=== PATIENT | female | born 1970 | race Caucasian/White ===

== ENCOUNTER 2022-08-24 01:37 | Emergency (ER) | payer MEDICAID ==
[~2022-08-24] VITALS: Ht 167.6 cm; Wt 74.8 kg
[~2022-08-24 01:37] MED LIST: ESCI20TA PO; TRAZ-250 PO
[2022-08-24 01:58] VITALS: BP_SYST 150
--- NOTE | 2022-08-24 02:08 | NUR ---
RIGHT SIDED ABD PAIN THAT IS SHARP IN NATURE AND INTERMITTENT 10/10 X1 WEEK
[2022-08-24 02:39] LABS: BASOPHILS # (AUTO) 0.1 K/uL (0.0-0.2); BASOPHILS % (AUTO) 0.7 % (0.0-2.0); EOSINOPHILS # (AUTO) 0.1 K/uL (0.0-0.4); EOSINOPHILS % (AUTO) 1.5 % (0.0-4.0); HEMOGLOBIN 12.7 g/dL (12.0-16.0); LYMPHOCYTES % (AUTO) 35.4 % (20.5-51.5); MEAN CORPUSCULAR HEMOGLOBIN 36 pg (27-31); MEAN CORPUSCULAR HGB CONC 34 % (32-36); MEAN CORPUSCULAR VOLUME 104 fL (79.0-98.0); MONOCYTES # (AUTO) 0.6 K/uL (0.0-1.0); MONOCYTES % (AUTO) 7.3 % (1.7-9.3); NEUTROPHILS # (AUTO) 4.6 K/uL (1.8-7.7); NEUTROPHILS % (AUTO) 55.1 % (40.0-70.0); PLATELET COUNT (AUTO) 135 K/uL (130-430); RED BLOOD CELL COUNT(AUTO) 3.58 MIL/uL (4.2-6.2); RED CELL DISTRIBUTION WIDTH 16.1 % (9.0-15.0); WHITE BLOOD COUNT (AUTO) 8.4 K/uL (4.8-10.8)
[2022-08-24 02:58] LABS: ALBUMIN 2.8 g/dL (3.4-4.8); CALCIUM 8.2 mg/dL (8.4-11.0); CREATININE 0.56 mg/dL (0.55-1.30)
[2022-08-24] MEDS ORDERED: HYDROcodone/ACETAMIN 5-325 MG TAB (NORCO/ VICODIN) PO ONE (03:15)
--- NOTE | 2022-08-24 03:18 | NUR ---
Patient arrived to ED 5 for c/o abdominal pain and vomiting on and off for past three weeks. Patient denies having previous abdominal pain. PMH Uterine ablation. Patient denies taking any medications prior to arrival. Patient alert and oriented x3. Respiration even and unlabored. No shortness of breath. Will continue to monitor.
[2022-08-24] MEDS ORDERED: HYDROcodone/ACETAMIN 5-325 MG TAB (NORCO/ VICODIN) ONE (03:44)
[2022-08-24 03:53] LABS: BILIRUBIN,URINE NEGATIVE (NEGATIVE); BLOOD, URINE NEGATIVE (NEGATIVE); CLARITY/URINE SL CLOUDY (CLEAR); COLOR,URINE YELLOW (YELLOW); GLUCOSE,URINE NEGATIVE (NEGATIVE); KETONES,URINE NEGATIVE (NEGATIVE); LEUKOCYTE ESTERASE ,URINE NEGATIVE (NEGATIVE); NITRITE, URINE NEGATIVE (NEGATIVE); PROTEIN URINE NEGATIVE (NEGATIVE)
[2022-08-24 04:20] VITALS: BP_SYST 132
[2022-08-24] MEDS ORDERED: IBUP-1969 PO (04:57)
[2022-08-24] MEDS ORDERED: DICY10CA13 PO (04:57)
[2022-08-24] MEDS ORDERED: ONDA-8 TL (04:57)
--- NOTE | 2022-08-24 05:08 | NUR ---
Informed of lab values. Educated patient on nutrient intake and supplements upon discharge.
--- NOTE | 2022-08-24 05:10 | NUR ---
Patient given written and verbal discharge instructions and verbalizes understanding. ER MD discussed with patient the results and treatment provided. Patient in stable condition. ID arm band removed. IV catheter removed intact and dressing applied, no active bleeding. Rx of meds dicyclomine given. Patient educated on pain management and to follow up with PMD. Pain Scale . Opportunity for questions provided and answered. Medication side effect fact sheet provided.
== END 2022-08-24 05:09 | disposition home or self-care (01) ==
LOC: SED 01:37
DX: K76.0 Fatty (change of) liver, not elsewhere classified (principal); R10.11 Right upper quadrant pain; R11.10 Vomiting, unspecified; Z79.899 Other long term (current) drug therapy
CPT/HCPCS: 36415; 74018; 76705; 80053; 81003; 83690; 85025; 99284

== ENCOUNTER 2023-01-27 14:59 | Inpatient (IN) | payer MEDICAID ==
[~2023-01-27] VITALS: Ht 167.6 cm; Wt 86.6 kg
[~2023-01-27 14:59] MED LIST changes: +DICY-14 PO; +IBUP-1969 PO; +ONDA-8 TL
[2023-01-27 15:45] VITALS: BP_SYST 143; PULSE 86; RESP 18; TEMP 97.6; O2SAT 98
[2023-01-27] MEDS ORDERED: NACL 0.9% 1,000 ML IV ONE (15:45)
[2023-01-27] MEDS ORDERED: MORPHINE 4 MG INJ. 4 MG/ML VIAL IVP ONE ×2 (15:45→18:00)
[2023-01-27] MEDS ORDERED: ONDANSETRON HCL 4 MG/2 ML VIAL IVP ONE ×2 (15:45→18:00)
[2023-01-27 16:31] LABS: BILIRUBIN,URINE 2+ (NEGATIVE); BLOOD, URINE 2+ (NEGATIVE); GLUCOSE,URINE NEGATIVE (NEGATIVE); KETONES,URINE TRACE (NEGATIVE); LEUKOCYTE ESTERASE ,URINE TRACE (NEGATIVE); NITRITE, URINE POSITIVE (NEGATIVE); PROTEIN URINE 1+ (NEGATIVE); UROBILINOGEN,URINE 0.2 (0.2-1.0)
[2023-01-27 16:48] LABS: BASOPHILS % (AUTO) 0.5 % (0.0-2.0); EOSINOPHILS # (AUTO) 0.1 K/uL (0.0-0.4); EOSINOPHILS % (AUTO) 0.9 % (0.0-4.0); HEMATOCRIT 35.2 % (36-48); HEMOGLOBIN 11.9 g/dL (12.0-16.0); LYMPHOCYTES # (AUTO) 1.5 K/uL (1.0-5.5); LYMPHOCYTES % (AUTO) 20.6 % (20.5-51.5); MEAN CORPUSCULAR HEMOGLOBIN 34 pg (27-31); MEAN CORPUSCULAR HGB CONC 34 % (32-36); MEAN CORPUSCULAR VOLUME 102 fL (79.0-98.0); MONOCYTES # (AUTO) 0.5 K/uL (0.0-1.0); MONOCYTES % (AUTO) 7.2 % (1.7-9.3); NEUTROPHILS # (AUTO) 5.2 K/uL (1.8-7.7); NEUTROPHILS % (AUTO) 70.8 % (40.0-70.0); PLATELET COUNT (AUTO) 197 K/uL (130-430); RED BLOOD CELL COUNT(AUTO) 3.46 MIL/uL (4.2-6.2); RED CELL DISTRIBUTION WIDTH 15.7 % (9.0-15.0); WHITE BLOOD COUNT (AUTO) 7.4 K/uL (4.8-10.8)
[2023-01-27] MEDS ORDERED: CIPROFLOXACIN LACT 400 MG/D5W 200 ML IV ONE (17:00)
[2023-01-27] MEDS ORDERED: metroNIDAZOLE 500 mg/NS 100 ML IV ONE (17:00)
[2023-01-27 17:01] LABS: ALBUMIN 2.1 g/dL (3.4-4.8); BILIRUBIN,DIRECT 0.6 mg/dL (0.0-0.3); CALCIUM 8.7 mg/dL (8.4-11.0); CREATININE 0.63 mg/dL (0.55-1.30); TOTAL BILIRUBIN 1.1 mg/dL (0.0-1.0)
[2023-01-27 17:21] LABS: POTASSIUM 2.6 mmol/L (3.5-5.1)
[2023-01-27 17:39] LABS: COLOR,URINE AMBER (YELLOW)
[2023-01-27 17:40] LABS: BACTERIA,URINE MODERATE /HPF (None Seen); CLARITY/URINE HAZY (CLEAR)
[2023-01-27 17:41] LABS: MUCUS,URINE 3+ /LPF (None Seen)
[2023-01-27] MEDS ORDERED: POTASSIUM CHLORIDE 20 MEQ/PKT PACKET PO ONE (18:00)
[2023-01-27] MEDS ORDERED: KCL 20 mEq in 100 mL (PREMIX) 100 ML IV ONE (18:00)
[2023-01-27] MEDS ORDERED: POTASSIUM CHLORIDE 20 MEQ/PKT PACKET ONE (18:41)
[2023-01-27] MEDS ORDERED: NALOXONE HCL 0.4 MG/ML AMP (NARCAN) IVP PRN (22:30)
[2023-01-27] MEDS ORDERED: LORazepam 2 MG/ML VIAL IVP PRN (22:30)
[2023-01-27] MEDS ORDERED: DICYCLOMINE HCL 10 MG CAPSULE PO PRN (22:30)
[2023-01-27] MEDS ORDERED: ONDANSETRON HCL 4 MG/2 ML VIAL IVP PRN (22:30)
[2023-01-27] MEDS: MORPHINE 4 MG INJ. 4 MG/ML VIAL IVP PRN (23:37)
[2023-01-27] MEDS ORDERED: cefTRIAXone 1 GM VIAL ONE (23:38)
[2023-01-27] MEDS: D5/0.45 NS 1,000 ML IV SCH (23:45)
[2023-01-27 23:54] VITALS: BP_SYST 114; PULSE 122; RESP 20; TEMP 99; O2SAT 94
[2023-01-28] VITALS (8 sets, daily range): BP systolic 117–134; PULSE 95–116; RESP 17–22; TEMP 97.1–98; O2SAT 94–96
[2023-01-28] MEDS: cefTRIAXone 1 GM in D5W 50 ML IV SCH ×2 (00:41→22:34)
[2023-01-28] MEDS: DIPHENHYDRAMINE INJ 50 MG/ML VIAL IVP PRN ×2 (00:59→10:29)
[2023-01-28] MEDS ORDERED: FLU VACC QS2023-24(6MOS UP)/PF 0.5 ML/SYR SYRINGE I.M. PRN (01:15)
[2023-01-28] MEDS: MORPHINE 4 MG INJ. 4 MG/ML VIAL IVP PRN ×4 (04:53→20:44)
[2023-01-28 06:04] LABS: BASOPHILS # (AUTO) 0.1 K/uL (0.0-0.2); BASOPHILS % (AUTO) 0.8 % (0.0-2.0); EOSINOPHILS # (AUTO) 0.1 K/uL (0.0-0.4); EOSINOPHILS % (AUTO) 2.2 % (0.0-4.0); HEMATOCRIT 34.5 % (36-48); HEMOGLOBIN 11.4 g/dL (12.0-16.0); LYMPHOCYTES # (AUTO) 1.7 K/uL (1.0-5.5); LYMPHOCYTES % (AUTO) 26.4 % (20.5-51.5); MEAN CORPUSCULAR HEMOGLOBIN 34 pg (27-31); MEAN CORPUSCULAR HGB CONC 33 % (32-36); MEAN CORPUSCULAR VOLUME 102 fL (79.0-98.0); MONOCYTES # (AUTO) 0.4 K/uL (0.0-1.0); MONOCYTES % (AUTO) 5.8 % (1.7-9.3); NEUTROPHILS # (AUTO) 4.3 K/uL (1.8-7.7); NEUTROPHILS % (AUTO) 64.8 % (40.0-70.0); PLATELET COUNT (AUTO) 176 K/uL (130-430); RED CELL DISTRIBUTION WIDTH 16.1 % (9.0-15.0); WHITE BLOOD COUNT (AUTO) 6.6 K/uL (4.8-10.8)
[2023-01-28] MEDS: D5/0.45 NS 1,000 ML IV SCH ×3 (06:17→23:07)
[2023-01-28 06:45] LABS: ALBUMIN 2.1 g/dL (3.4-4.8); CALCIUM 8.5 mg/dL (8.4-11.0); CREATININE 0.58 mg/dL (0.55-1.30); PHOSPHORUS 2.3 mg/dL (2.7-4.5); POTASSIUM 3.1 mmol/L (3.5-5.1)
[2023-01-28] MEDS ORDERED: ESCITALOPRAM OXALATE 10 MG TABLET PO SCH (09:00)
[2023-01-28] MEDS: CITALOPRAM HYDROBROMIDE 20 MG TABLET PO SCH (09:00)
[2023-01-28] MEDS ORDERED: POTASSIUM CHLORIDE 20 MEQ/PKT PACKET PO ONE (12:00)
[2023-01-28] MEDS: metroNIDAZOLE 500 mg/NS 100 ML IV SCH ×2 (16:26→21:17)
[2023-01-28] MEDS: traZODone HCL 50 MG TABLET (DESYREL) PO SCH ×2 (20:54→20:58)
[2023-01-28] MEDS: LACTOBACILLUS RHAMNOSUS GG 1 CAP CAPSULE PO SCH (20:54)
[2023-01-28] MEDS: MORPHINE 2 MG/ML INJ. SYRINGE IVP PRN (22:40)
[2023-01-29] VITALS (8 sets, daily range): BP systolic 93–124; PULSE 102–120; RESP 16–18; TEMP 97.4–99.1; O2SAT 93–99
[2023-01-29] MEDS: MORPHINE 4 MG INJ. 4 MG/ML VIAL IVP PRN ×3 (04:19→22:42)
[2023-01-29] MEDS: metroNIDAZOLE 500 mg/NS 100 ML IV SCH ×3 (05:20→22:42)
[2023-01-29 05:53] LABS: BASOPHILS % (AUTO) 0.7 % (0.0-2.0); EOSINOPHILS # (AUTO) 0.1 K/uL (0.0-0.4); EOSINOPHILS % (AUTO) 1.8 % (0.0-4.0); HEMATOCRIT 32.3 % (36-48); HEMOGLOBIN 10.6 g/dL (12.0-16.0); LYMPHOCYTES # (AUTO) 1.2 K/uL (1.0-5.5); LYMPHOCYTES % (AUTO) 19.2 % (20.5-51.5); MEAN CORPUSCULAR HEMOGLOBIN 33 pg (27-31); MEAN CORPUSCULAR HGB CONC 33 % (32-36); MEAN CORPUSCULAR VOLUME 102 fL (79.0-98.0); MONOCYTES # (AUTO) 0.3 K/uL (0.0-1.0); MONOCYTES % (AUTO) 4.6 % (1.7-9.3); NEUTROPHILS # (AUTO) 4.4 K/uL (1.8-7.7); NEUTROPHILS % (AUTO) 73.7 % (40.0-70.0); PLATELET COUNT (AUTO) 161 K/uL (130-430); RED BLOOD CELL COUNT(AUTO) 3.17 MIL/uL (4.2-6.2); RED CELL DISTRIBUTION WIDTH 15.8 % (9.0-15.0)
[2023-01-29 05:57] LABS: ERYTHROCYTE SEDIMENTATION RATE 69 MM/HR (0-20)
[2023-01-29 06:09] LABS: CREATININE 0.52 mg/dL (0.55-1.30); POTASSIUM 3.1 mmol/L (3.5-5.1)
[2023-01-29] MEDS: LACTOBACILLUS RHAMNOSUS GG 1 CAP CAPSULE PO SCH ×2 (09:02→20:51)
[2023-01-29] MEDS: CITALOPRAM HYDROBROMIDE 20 MG TABLET PO SCH (09:03)
[2023-01-29] MEDS: MORPHINE 2 MG/ML INJ. SYRINGE IVP PRN ×2 (09:03→13:37)
[2023-01-29] MEDS: D5/0.45 NS 1,000 ML IV SCH (09:08)
[2023-01-29] MEDS ORDERED: POTASSIUM CHLORIDE 20 MEQ TABLET.ER PO ONE (10:00)
[2023-01-29] MEDS ORDERED: HYDROcodone/ACETAMIN 5-325 MG TAB (NORCO/ VICODIN) PO PRN (15:00)
[2023-01-29] MEDS: HYDROcodone/ACETAMIN 5-325 MG TAB (NORCO/ VICODIN) PO PRN (15:03)
[2023-01-29] MEDS: AMPICILLIN SODIUM 1 GM in NS 50 ML IV SCH (18:26)
[2023-01-29] MEDS: traZODone HCL 50 MG TABLET (DESYREL) PO SCH (20:51)
[2023-01-30] VITALS (8 sets, daily range): BP systolic 92–123; PULSE 107–121; RESP 15–20; TEMP 97.9–98.9; O2SAT 92–99
[2023-01-30] MEDS: AMPICILLIN SODIUM 1 GM in NS 50 ML IV SCH ×5 (00:58→23:09)
[2023-01-30] MEDS: MORPHINE 4 MG INJ. 4 MG/ML VIAL IVP PRN ×5 (03:38→21:56)
[2023-01-30 05:30] LABS: BASOPHILS # (AUTO) 0.1 K/uL (0.0-0.2); BASOPHILS % (AUTO) 1.8 % (0.0-2.0); EOSINOPHILS # (AUTO) 0.1 K/uL (0.0-0.4); EOSINOPHILS % (AUTO) 1.7 % (0.0-4.0); HEMATOCRIT 30.7 % (36-48); HEMOGLOBIN 10.1 g/dL (12.0-16.0); LYMPHOCYTES % (AUTO) 18.6 % (20.5-51.5); MEAN CORPUSCULAR HEMOGLOBIN 34 pg (27-31); MEAN CORPUSCULAR HGB CONC 33 % (32-36); MEAN CORPUSCULAR VOLUME 102 fL (79.0-98.0); MONOCYTES # (AUTO) 0.3 K/uL (0.0-1.0); MONOCYTES % (AUTO) 5.4 % (1.7-9.3); NEUTROPHILS # (AUTO) 3.9 K/uL (1.8-7.7); NEUTROPHILS % (AUTO) 72.5 % (40.0-70.0); PLATELET COUNT (AUTO) 153 K/uL (130-430); RED BLOOD CELL COUNT(AUTO) 3.01 MIL/uL (4.2-6.2); RED CELL DISTRIBUTION WIDTH 15.6 % (9.0-15.0); WHITE BLOOD COUNT (AUTO) 5.4 K/uL (4.8-10.8)
[2023-01-30 05:37] LABS: ERYTHROCYTE SEDIMENTATION RATE 59 MM/HR (0-20)
[2023-01-30] MEDS: D5/0.45 NS 1,000 ML IV SCH ×2 (05:42→08:14)
[2023-01-30 05:43] LABS: INR 1.7 (0.8-1.2); PROTHROMBIN TIME 16.7 SECS (9.5-12.5)
[2023-01-30 05:45] LABS: CREATININE 0.51 mg/dL (0.55-1.30)
[2023-01-30] MEDS: metroNIDAZOLE 500 mg/NS 100 ML IV SCH ×3 (06:45→22:05)
[2023-01-30] MEDS: LACTOBACILLUS RHAMNOSUS GG 1 CAP CAPSULE PO SCH ×2 (08:13→21:56)
[2023-01-30] MEDS: CITALOPRAM HYDROBROMIDE 20 MG TABLET PO SCH (08:13)
[2023-01-30 13:41] LABS: APPEARANCE,SPUN,BODY FLUID CLEAR (CLEAR); BF APPEARANCE UNSPUN CLEAR (CLEAR); BODY FLUID COLOR LT YELLOW (LT YELLOW); BODY FLUID SOURCE/ TYPE ASCITES; BODY FLUID TOTAL VOLUME 4600 mL; MONOCYTES,BODY FLUID 47 %; NEUTROPHIL, BODY FLUID 53 %; RBC, BODY FLUID 100 /uL; SOURCE/TYPE ,BODY FLUID PARACENTESIS; WBC, BODY FLUID 289 /uL
[2023-01-30] MEDS: NORMAL SALINE 5 ML DISP.SYRIN IVF SCH ×2 (15:24→22:05)
[2023-01-30] MEDS: SIMETHICONE 80 MG TAB.CHEW PO SCH ×2 (17:30→21:56)
[2023-01-30 20:12] LABS: BODY FLUID GLUCOSE 119 mg/dL; BODY FLUID TOTAL PROTEIN < 2.0 g/dL
[2023-01-30] MEDS: traZODone HCL 50 MG TABLET (DESYREL) PO SCH (21:00)
[2023-01-30] MEDS: DIPHENHYDRAMINE INJ 50 MG/ML VIAL IVP PRN (21:56)
[2023-01-31 00:11] VITALS: BP_SYST 110; PULSE 110; RESP 16; TEMP 98; O2SAT 96
[2023-01-31] MEDS: MORPHINE 4 MG INJ. 4 MG/ML VIAL IVP PRN ×3 (02:35→14:57)
[2023-01-31 03:06] LABS: HEPATITIS A AB, IgM Negative (Negative); HEPATITIS B CORE AB, IgM Negative (Negative); HEPATITIS B SURFACE AG Negative (Negative)
[2023-01-31 05:31] LABS: BASOPHILS % (AUTO) 0.5 % (0.0-2.0); EOSINOPHILS # (AUTO) 0.1 K/uL (0.0-0.4); EOSINOPHILS % (AUTO) 2.1 % (0.0-4.0); HEMATOCRIT 32.3 % (36-48); HEMOGLOBIN 10.6 g/dL (12.0-16.0); LYMPHOCYTES # (AUTO) 1.5 K/uL (1.0-5.5); LYMPHOCYTES % (AUTO) 25.9 % (20.5-51.5); MEAN CORPUSCULAR HEMOGLOBIN 34 pg (27-31); MEAN CORPUSCULAR HGB CONC 33 % (32-36); MEAN CORPUSCULAR VOLUME 103 fL (79.0-98.0); MONOCYTES # (AUTO) 0.5 K/uL (0.0-1.0); MONOCYTES % (AUTO) 8.5 % (1.7-9.3); NEUTROPHILS # (AUTO) 3.5 K/uL (1.8-7.7); PLATELET COUNT (AUTO) 154 K/uL (130-430); RED BLOOD CELL COUNT(AUTO) 3.14 MIL/uL (4.2-6.2); RED CELL DISTRIBUTION WIDTH 15.9 % (9.0-15.0); WHITE BLOOD COUNT (AUTO) 5.6 K/uL (4.8-10.8)
[2023-01-31 05:35] LABS: ERYTHROCYTE SEDIMENTATION RATE 65 MM/HR (0-20)
[2023-01-31] MEDS: AMPICILLIN SODIUM 1 GM in NS 50 ML IV SCH ×3 (05:50→18:15)
[2023-01-31 06:04] LABS: CALCIUM 8.1 mg/dL (8.4-11.0); CREATININE 0.51 mg/dL (0.55-1.30); POTASSIUM 3.1 mmol/L (3.5-5.1)
[2023-01-31] MEDS: metroNIDAZOLE 500 mg/NS 100 ML IV SCH ×2 (06:49→14:57)
[2023-01-31] MEDS: NORMAL SALINE 5 ML DISP.SYRIN IVF SCH ×2 (06:50→14:46)
[2023-01-31 06:53] VITALS: BP_SYST 96; PULSE 110; RESP 18
[2023-01-31 08:00] VITALS: BP_SYST 102; PULSE 120; RESP 20; TEMP 98.8; O2SAT 97
[2023-01-31] MEDS: SIMETHICONE 80 MG TAB.CHEW PO SCH ×3 (10:07→18:02)
[2023-01-31] MEDS: LACTOBACILLUS RHAMNOSUS GG 1 CAP CAPSULE PO SCH (10:07)
[2023-01-31] MEDS: CITALOPRAM HYDROBROMIDE 20 MG TABLET PO SCH (10:10)
[2023-01-31 12:00] VITALS: BP_SYST 96; PULSE 101; RESP 20; TEMP 98.8; O2SAT 97
[2023-01-31 16:00] VITALS: BP_SYST 113; PULSE 108; RESP 20; TEMP 98.4; O2SAT 99
[2023-01-31] MEDS ORDERED: FUROSEMIDE 40 MG TABLET PO ONE (17:00)
[2023-01-31] MEDS ORDERED: SPIRONOLACTONE 50 MG TABLET (ALDACTONE) PO ONE (17:00)
[2023-01-31] MEDS ORDERED: FURO-149 PO (17:04)
[2023-01-31] MEDS ORDERED: LACT1CAP57 PO (17:04)
[2023-01-31] MEDS ORDERED: SPIR50TA PO (17:04)
[2023-01-31] MEDS ORDERED: SIME80TA15 PO (17:04)
[2023-01-31] MEDS ORDERED: AMOX500C2 PO (17:04)
[2023-01-31] MEDS ORDERED: TRAM50TA2 PO (17:07)
[2023-01-31] MEDS ORDERED: POTASSIUM CHLORIDE 20 MEQ TABLET.ER PO ONE (17:15)
[2023-01-31 18:07] VITALS: BP_SYST 120; PULSE 120; RESP 20; TEMP 98.4; O2SAT 97
[2023-01-31] MEDS: HYDROcodone/ACETAMIN 5-325 MG TAB (NORCO/ VICODIN) PO PRN (18:38)
[2023-02-01] MEDS ORDERED: SPIRONOLACTONE 50 MG TABLET (ALDACTONE) PO SCH (09:00)
[2023-02-01] MEDS ORDERED: FUROSEMIDE 40 MG TABLET PO SCH (09:00)
[2023-02-12 09:24] LABS: HEPATITIS C VIRUS AB Positive >0.9 (0.0-0.9)
[2023-02-12] MEDS ORDERED: SPIR100T5 PO (22:14)
[2023-02-12] MEDS ORDERED: GABA-534 PO (22:14)
[2023-02-12] MEDS ORDERED: FURO40TA5 PO (22:14)
[2023-02-12] MEDS ORDERED: PROP10TA10 PO (22:14)
== END 2023-01-31 19:03 | disposition home or self-care (01) | DRG 720 ==
LOC: SED 14:59 → SMU 20:24
PROVIDERS: ADMIT Preventive Medicine Preventive Medicine/Occupational Environmental Medicine; ATTEND Preventive Medicine Preventive Medicine/Occupational Environmental Medicine
PROC: 0W9G3ZZ Drainage of Peritoneal Cavity, Percutaneous Approach (ICD-10-PCS; principal; 2023-01-30)
DX: A41.9 Sepsis, unspecified organism (principal); E43 Unspecified severe protein-calorie malnutrition; R18.8 Other ascites; D63.8 Anemia in other chronic diseases classified elsewhere; K74.60 Unspecified cirrhosis of liver; B95.5 Unspecified streptococcus as the cause of diseases classified elsewhere; F32.A Depression, unspecified; N39.0 Urinary tract infection, site not specified; E87.6 Hypokalemia; R73.9 Hyperglycemia, unspecified; K80.20 Calculus of gallbladder without cholecystitis without obstruction; R74.01 Elevation of levels of liver transaminase levels; E66.9 Obesity, unspecified; Z79.899 Other long term (current) drug therapy; Z68.30 Body mass index [BMI] 30.0-30.9, adult; K52.9 Noninfective gastroenteritis and colitis, unspecified
CPT/HCPCS: 36415; 49083; 76376; 76700-TC; 76705; 78226; 80048; 80053; 80074; 80076; 81000; 81001; 81015; 82042; 82947; 83605; 83690; 83735; 84100; 84157; 85025; 85610-TC; 85651-TC; 85730-TC; 87040; 87045-TC; 87046; 87081; 87086; 87230-TC; 89051-TC; 89055; 89060-TC; 96365; 96375; 99285; A9537; J0290; J0696; J0744; J1200; J2270; J2405; J3480; J3490; J7060